=== PATIENT | male | born 1980 | race Caucasian/White ===

== ENCOUNTER → 2020-04-29 17:23 | Outpatient (CLI) | payer OTHER, SELFPAY ==
--- NOTE | ~2020-04-29 | XR_ITS ---
EXAMINATION: XR chest 2V EXAM DATE: 04/29/2020 17:43 INDICATION: Chest tightness for couple of days. Productive cough. TECHNIQUE: Frontal and lateral projections of the chest obtained and reviewed. There is no prior aundrea dy for comparison. FINDINGS: Moderate hyperinflation. The lungs are clear. There are no pleural effusions. The cardiom ediastinal silhouette is within normal limits. There is no pneumothorax suspected. The bones and so ft tissues are unremarkable. IMPRESSION: 1. No acute cardiopulmonary findings. 2. Hyperinflation. Reviewed, dictated and finalized at location A.
== END ==
PROVIDERS: PCP Family Medicine; Visit Provider Family Medicine
DX: R05 Cough (principal)
CPT/HCPCS: 71046

== ENCOUNTER 2024-01-31 20:11 | Emergency (ER) | payer OTHER, SELFPAY ==
[2024-01-31 20:14] VITALS: BP 142/92; PULSE 88; RESP 15; TEMP 36.7; O2SAT 98
[2024-01-31 20:33] LABS: Basophils Absolute Auto 0.1 K/mm3 (0.0-0.1); Basophils Percent Auto 0.5 % (0.2-1.2); Eosinophils Absolute Auto 0.1 K/mm3 (0-0.3); Hematocrit 45.5 % (42.0-52.0); Hemoglobin 15.2 g/dL (14.0-18.0); Immature Granulocyte Absolute 0.02 K/mm3 (0.00-0.031); Immature Granulocyte Percent A 0.2 % (0-0.5); Lymphocytes Absolute Auto 2.91 K/mm3 (0.9-3.2); Lymphocytes Percent Auto 31.9 % (18.3-44.2); Mean Corpuscular HGB Conc 33.4 g/dl (32-36); Mean Corpuscular Hemoglobin 30.2 pg (26-34); Mean Corpuscular Volume 90.5 fl (80-100); Mean Platelet Volume 10.8 fl (7.4-10.4); Monocytes Absolute Auto 0.6 K/mm3 (0.1-0.6); Neutrophils Absolute Auto 5.4 K/mm3 (1.3-6.7); Neutrophils Percent Auto 59.4 % (45.5-73.1); Platelet Count Result 204 k/mm3 (150-375); Red Blood Count 5.03 M/mm3 (4.6-6.20); White Blood Count 9.1 K/mm3 (4.5-10.0)
[2024-01-31 20:43] LABS: Alanine Aminotransferase 25 U/L (6-50); Albumin Level 5.3 g/dL (3.5-5.1); Alkaline Phosphatase 65 U/L (38-126); Anion Gap 10 mmol/L (4-12); Aspartate Amino Transferase 39 U/L (17-59); Bilirubin,Total 0.8 mg/dL (0.2-1.3); Blood Urea Nitrogen 20 mg/dL (9-20); Calcium 9.7 mg/dL (8.4-10.2); Carbon Dioxide 29 mmol/L (22-30); Chloride 99 mmol/L (98-107); Estimated CRCL calculation 104 ml/min; Estimated Glomerular Filt Rate > 60; Glucose 82 mg/dL (65-110); Lipase 74 U/L (23-300); Potassium 3.7 mmol/L (3.4-5.0); Sodium 138 mmol/L (137-145)
--- NOTE | 2024-02-01 00:43 | PC.NURSE ---
Patient ambulates to the triage desk and states he needs to go to work in the morning and wants to leave. IV removed. Patient ambulates out of the waiting room without incident.
== END 2024-02-01 00:43 | disposition left against medical advice (07) ==
PROVIDERS: Emergency Provider Emergency Medicine; PCP Family Medicine
DX: R10.33 Periumbilical pain (principal)
CPT/HCPCS: 36415; 80053; 83690; 85025; 99199

== ENCOUNTER 2025-02-09 17:43 | Emergency (ER) | payer OTHER, SELFPAY ==
--- NOTE | ~2025-02-09 | XR_ITS ---
EXAMINATION: XR hand LT min 3V DATE: 02/09/2025 18:33 INDICATION: Laceration to the left thumb TECHNIQUE: Posteroanterior, oblique and lateral views of the left hand were obtained. COMPARISON: None. FINDINGS: Alignment is normal. No fracture. Joint spaces are normal. Laceration along the palmar aspect of the first distal phalanx. No radiopaque foreign bodies. IMPRESSION: 1. No osseous abnormality or radiopaque foreign body. Reviewed, dictated and finalized at location A.
--- OUTSIDE RECORDS SUMMARY | 2025-02-09 17:45 | XMS_ITS | Clinical Summary ---
Author Organization [facility] Address [address] [place] [address] Care Team Providers Care Pharmacist Assistant Name Role Phone Sania Taveras MD Primary Care Provider [phone] Source Comments [facility],non-owned Affiliates and Associated Physician Practices is amultiple site organization consisting of ambulatory clinics and hospital sitesin [place], [place], [place] and [place]. This disclosure is being madepursuant to the Care Everywhere program and may not contain all information available regarding this patient. Last updated 18.[facility] Allergies Active Allergy Reactions Criticality Noted Date Comments Sulfa Drugs Unknown 10/10/2008 Medications * Be aware that medications may not be up to date on this document. Alwaysverify current medications with the patient. sildenafil (VIAGRA) 100 MG tabletIndication s:Impotence due to erectile dysfunction Take 1 Tab by mouth once as needed for 1 dose. 9 Tab 5 1 Active Tizanidine HCl (ZANAFLEX) 4 MG CAPS once daily. Active multivitamin daily (THERAGRAN) tablet once daily. Active hydrocodone-acet aminophen (NORCO) 7.5-325 MG tablet Take 1 Tab by mouth every 4 hours as needed. Active Docusate Calcium (STOOL SOFTENER PO) Take by mouth. Activ e Polyethylene Glycol 3350 (MIRALAX PO) Take by mouth. Ac tive oxycodone-acetam inophen (PERCOCET) 10-325 MG tablet Take 1 Tab by mouth every 4 hours as needed for Pain. 60 Tab 0 2 Active omeprazole (PRILOSEC) 40 MG capsuleIndicatio ns:Gastritis Take 1 Cap by mouth 2 times daily,before breakfast and supper. 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 Gender Identity Not on file Sexual Orientation Not on file 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 Not on file Not o n file Last Filed Vital Signs Vital Sign Reading Time Taken Comments Blood Pressure 110/70 06/13/2012 1:12 PM AVIATION SUPPORT EQUIPMENT REPAIRER Pulse 74 06/13/2012 1:12 PM AVIATION SUPPORT EQUIPMENT REPAIRER Temperature 36.7 C (98.1 F) 06/13/2012 1:12 PM AVIATION SUPPORT EQUIPMENT REPAIRER Respiratory Rate 16 09/14/2011 2:27 PM AVIATION SUPPORT EQUIPMENT REPAIRER Oxygen Saturation - - Inhaled Oxygen Concentration - - Weight 89.8 kg (198 lb) 06/13/2012 1:12 PM AVIATION SUPPORT EQUIPMENT REPAIRER Height 191.8 cm (6' 3.5) 06/13/2012 1:12 PM AVIATION SUPPORT EQUIPMENT REPAIRER Body Mass Index 24.42 06/13/2012 1:12 PM AVIATION SUPPORT EQUIPMENT REPAIRER Plan of Treatment Health Maintenance Due Date Last Done Comments LIPID TESTING 1981 HIV SCREENING 1996 HEPATITIS C SCREENING 08/18/1999 DTAP/TDAP/TD VACCINES (1 - Tdap) 2000 HEPATITIS B VACCINE (1 of 3 - 19+ 3-dose series) 2000 HPV VACCINE (1 - 3-dose SCDM series) 2008 COVID-19 VACCINE (2023-2 5 season) 2024 DEPRESSION SCREENING 07/19/2024 INFLUENZA VACCINE (#1) 2025 ZOSTER VACCINE (1 of 2) 2031 HIB VACCINE Aged Out No longer eligi ble based on patient's age to complete this topic MENINGOCOCCAL (Group B) VACC INE SHARED DECISION-MAKING Aged Out No longer eligibl e based on patient's age to complete this topic MENINGOCOCCAL GROUPS A/C/Y/W VACCINE Aged Out No longer eligible b ased on patient's age to complete this topic PNEUMOCOCCAL VACCINE Aged Out No long er eligible based on patient's age to complete this topic Insurance Care Teams Pharmacist Assistant Relationship Specialty Start Date End Date Sania Taveras MD [address] [facility] [facility] [place] [address] PCP - General 11/17/08
--- OUTSIDE RECORDS SUMMARY | 2025-02-09 17:45 | XMS_ITS | Encounter Summary ---
Author Organization [facility] Health Address [address] [place] [address] Care Team Providers Care Micro Computer Data Processor Name Role Phone Sania Taveras MD Primary Care Provider [phone] Encounter Details Date Type Department Care Team (Late st Contact Info) Description 12/01/2010 [facility] Outpatient Visit [facility] [address] [place] [address] Unknown, Provider Social History Tobacco Use Types Packs/Day Years Used Date Smoking Tobacco: Former Comments:2-3 months ago Alcohol Use Standard Drinks/Week Comments Yes 0 (1 standard drink = 0.6 oz pur e alcohol) socialy once a week Sex and Gender Information Value Date Recorded Sex Assigned at Not on file 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
--- OUTSIDE RECORDS SUMMARY | 2025-02-09 17:45 | XMS_ITS | Continuity of Care Document ---
Author Organization [facility] Address [address] [place] [address] Phone Care Team Providers Care Fiscal Technician Name Role Phone No Information Unavailable Unavailable Advance Directives Directive Yes / No Effective Date File Name No Information Encounters Encounter Description Practice Location Reason(s) For Visit Diagnoses Date Provider Providers Copied on Encounter [facility] , [address], [place], [address], [place] tel:[phone] [facility] No Information No Information Referring Provider: Will Howe B, [address], [place], [address]. tel:[phone] Family History Family Member Type Diagnosis Age At Onset No Information Payers Payer name Insurance type Covered constitution party ID Authoriza tion(s) No Information Social History Type Description Quantity Date Captured Comments Sex Male Smoking Status No Information Chief Complaint And Reason For Visit No Information Reason For Referral Reason For Referral No Information History Of Present Illness Encounter Date Complaint History Of Prese nt Illness No Information Functional Status Date Functional Assessmen t No Information Instructions Date Instruction Additional Infor mation No Information Assessments Type Assessment Date No Information Patient Care Teams Name Effective Dates (start - stop) Status Members No Information
[2025-02-09 17:52] VITALS: BP 147/97; PULSE 112; RESP 16; TEMP 37.1; O2SAT 96
--- NOTE | 2025-02-09 18:30 | ED.WOUNDLAC ---
HPI - Wound/Laceration General Chief Complaint: Wound/Laceration <Kailee Montana APRN - Last Filed: 02/09/25 18:33> Stated Complaint: left thumb lac <Kailee Montana APRN - Last Filed: 02/09/25 18:33> Time Seen by Provider: 02/09/25 18:00 <Kailee Montana APRN - Last Filed: 02/09/25 18:33> Focused HPI: Patient is a 44-year-old male who presents to the ER with the left thumb laceration. He reports he cut his left thumb on a razor blade around 2:30 p.m. today. Patient reports he wrapped it up and the bleeding stopped, but then when he unwrapped it he realized how deep the cut was and decided to come into the ER for further evaluation. Patient endorses the significant mental health history but reports his symptoms are well controlled by medication. He also endorses a history of GERD and chronic lower back pain. Patient denies any decreased range of motion, purulence drainage, or excessive bleeding. GENERAL: Well-appearing, well-nourished, and in no acute distress. HEAD: Normocephalic, atraumatic. CHEST: Clear to auscultation. ?No respiratory distress. HEART: Regular rate and rhythm.? NEURO: ?Alert and oriented x3. Patient screened in triage and initial orders placed.? ?Additional care and disposition to be based upon?diagnostic testing and treatment. <Kailee Montana APRN - Last Filed: 02/09/25 18:33> Related Data Home Medications: Home Medications ?Medication ?Instructions ?Recorded ?Confirmed ?Last Taken ?Type doxycycline hyclate 20 mg tablet 20 mg PO Q12H 10/05/22 02/03/24 Unknown History lamotrigine 200 mg tablet 200 mg PO DAILY 12/22/23 02/03/24 Unknown History quetiapine 150 mg tablet 150 mg PO DAILY 12/22/23 02/03/24 Unknown History <Kailee Montana APRN - Last Filed: 02/09/25 18:33> Allergies/Adverse Reactions: Allergies Allergy/AdvReac Type Severity Reaction Status Date / Time hydrocodone Allergy Intermediate Hives / Verified 02/09/25 17:52 Red Face Sulfa (Sulfonamide Allergy Unknown Agitated Verified 02/09/25 17:52 Antibiotics) codeine Allergy Hives Verified 02/09/25 17:52 <Kailee Montana APRN - Last Filed: 02/09/25 18:33> Review of Systems Review of Systems: All systems reviewed & are unremarkable except as noted in HPI and below <Jacquelin Gallardo PA-C - Last Filed: 02/09/25 22:39> PMFSH Past Medical History Medical History: Medical History (Reviewed 02/03/24 @ 10:36 by Alexey Del Cid [facility]) Bipolar 1 disorder Chronic neck pain Medication addiction in remission Mild intermittent asthma in adult without complication <Kailee Montana APRN - Last Filed: 02/09/25 18:33> Family History Family History: Family History Other Cerebrovascular accident <Kailee Montana APRN - Last Filed: 02/09/25 18:33> Social History Social History: Social History (Reviewed 02/03/24 @ 10:36 by Alexey Del Cid [facility]) Smoking status: Former smoker (quit 2 years ago ) Second hand tobacco smoke exposure: No Alcohol intake: former Substance use: former Substance use type: does not use Lack of Transportation: No Lack of Food: Never True Current Housing: I Have Housing Concerned About Future Housing: No Difficulty Paying Gas/Electric Bills: No Difficulty Paying for Meds: No Currently Unemployed: No Education: High School Diploma/GED Difficulty w/ Childcare or Family Care: No Living arrangements: with family Additional living arrangements comments: lives with . Gender identity (if verbalized by the patient): Male Sexual Orientation (if Verbalized by the Patient): Straight or Heterosexual Spiritual care concerns: No Agree to blood products: Yes <Kailee Montana APRN - Last Filed: 02/09/25 18:33> Exam Narrative: GENERAL: Well-appearing, well-nourished, and in no acute distress. HEAD: Normocephalic, atraumatic. EYES: EOMI. EXTREMITIES: Normal range of motion. No edema. 2cm flap laceration to the left 1st finger SKIN: Warm, dry, no rash. NEURO: No focal deficits. Alert and oriented x3. PSYCH: Normal mood and affect <Jacquelin Gallardo PA-C - Last Filed: 02/09/25 22:39> Course Vital Signs Vital signs: Vital Signs Temperature 98.7 F 02/09/25 17:52 Pulse Rate 112 H 02/09/25 17:52 Respiratory Rate 16 02/09/25 17:52 Blood Pressure 147/97 H 02/09/25 17:52 Pulse Oximetry 96 02/09/25 17:52 Oxygen Delivery Room Air 02/09/25 17:52 Temperature 98.4 F 02/09/25 21:18 Pulse Rate 100 02/09/25 21:18 Respiratory Rate 17 02/09/25 21:18 Blood Pressure 136/87 02/09/25 21:18 Pulse Oximetry 97 02/09/25 21:18 Oxygen Delivery Room Air 02/09/25 21:18 <Kailee Montana, INFRASTRUCTURE SOLUTIONS ARCHITECT - Last Filed: 02/09/25 18:33> Vital Signs Temperature 98.7 F 02/09/25 17:52 Pulse Rate 112 H 02/09/25 17:52 Respiratory Rate 16 02/09/25 17:52 Blood Pressure 147/97 H 02/09/25 17:52 Pulse Oximetry 96 02/09/25 17:52 Oxygen Delivery Room Air 02/09/25 17:52 Temperature 98.4 F 02/09/25 21:18 Pulse Rate 100 02/09/25 21:18 Respiratory Rate 17 02/09/25 21:18 Blood Pressure 136/87 02/09/25 21:18 Pulse Oximetry 97 02/09/25 21:18 Oxygen Delivery Room Air 02/09/25 21:18 <Jacquelin Gallardo PA-C - Last Filed: 02/09/25 22:39> Procedures Laceration Laceration 1: Date: 02/09/25 <UZMA Peralta Last Filed: 02/09/25 22:39> Time: 22:38 <UZMA Peralta Last Filed: 02/09/25 22:39> Site: hand <UZMA Peralta Last Filed: 02/09/25 22:39> Side (If applicable): left <UZMA Peralta Last Filed: 02/09/25 22:39> Size (cm): 2 <UZMA Peralta Last Filed: 02/09/25 22:39> Description: flap <UZMA Peralta Last Filed: 02/09/25 22:39> Depth: simple, single layer <UZMA Peralta Last Filed: 02/09/25 22:39> Local Anesthetic: lidocaine 1% <UZMA Peralta Last Filed: 02/09/25 22:39> Amount of anesthesia used (mL): 2 <UZMA Peralta Last Filed: 02/09/25 22:39> Pre-repair: wound explored and irrigated <UZMA Peralta Last Filed: 02/09/25 22:39> ====== Skin Level ======: Skin layer closed with: nylon and vicryl <UZMA Peralta Last Filed: 02/09/25 22:39> Size (cm): 4-0 <UZMA Peralta Last Filed: 02/09/25 22:39> Number of sutures: 6 <UZMA Peralta Last Filed: 02/09/25 22:39> Technique: simple, interrupted <UZMA Peralta Last Filed: 02/09/25 22:39> ====== Subcutaneous Layer ======: ====== Muscle Layer ======: ====== Tendon Layer ======: MDM - Wound/Laceration MDM Narrative Medical decision making narrative: Patient presents the emergency department for laceration to the left 1st finger. Wound was irrigated and closed with sutures. Patient is up-to-date on tetanus vaccination. X-ray without acute osseous abnormalities. He was educated on further wound care. He is to follow up with primary provider. He was given warnings to return to the ER <UZMA Peralta Filed: 02/09/25 22:39> Differential Diagnosis Differential diagnosis: Likely laceration, abrasion and avulsion of skin <Jacquelin Gallardo PA-C - Last Filed: 02/09/25 22:39> Imaging Data Radiologist's impression: ITS Impressions Hand X-Ray 02/09/25 20:22 IMPRESSION: 1. No osseous abnormality or radiopaque foreign body. <Jacquelin Gallardo PA-C - Last Filed: 02/09/25 22:39> Critical Care Time Critical Care Time Critical Care Time: No <Jacquelin Gallardo PA-C - Last Filed: 02/09/25 22:39> Discharge Plan Discharge Clinical Impression: Laceration <Kailee Montana APRN - Last Filed: 02/09/25 18:33> Patient Disposition: Home <Kailee Montana APRN - Last Filed: 02/09/25 18:33> Condition: Stable <Kailee Montana APRN - Last Filed: 02/09/25 18:33> Instructions: Care For Your Stitches (ED), Laceration (ED) <Kailee Montana APRN - Last Filed: 02/09/25 18:33> Additional Instructions: Return to the emergency department if you experience fever, redness or swelling of your wound, abnormal drainage from your wound, or any other symptoms that are concerning to you. Apply antibiotic ointment daily. Do not soak the wound. Clean with mild soap and water daily Follow-up with your primary care doctor for suture removal in 10-14 days. <Kailee Montana APRN - Last Filed: 02/09/25 18:33> Patient Language: Citizen Of [place] <Kailee Montana APRN - Last Filed: 02/09/25 18:33> Prescriptions: No Action doxycycline hyclate 20 mg tablet 20 mg PO Q12H quetiapine 150 mg tablet 150 mg PO DAILY lamotrigine 200 mg tablet 200 mg PO DAILY tadalafil [Cialis] 10 mg tablet 10 mg PO DAILY PRN (Reason: sexual activity) Qty: 10 3RF Rx Instructions: administer approximately 30min before sexual activity; do not use more than 1 dose per 24hrs omeprazole 40 mg capsule,delayed release(DR/EC) 40 mg PO DAILY Qty: 90 4RF cyclobenzaprine 10 mg tablet 10 mg PO TID PRN (Reason: muscle spasm) Qty: 270 0RF <Kailee Montana APRN - Last Filed: 02/09/25 18:33> Follow-up/Referrals: Faith Cedeno MD [Primary Care Provider] - <Kailee Montana APRN - Last Filed: 02/09/25 18:33>
[2025-02-09] MEDS: LIDOCAINE 1% LOCAL INJ 10 ML VIAL INFILTRATE (20:10)
--- OUTSIDE RECORDS SUMMARY | 2025-02-09 20:15 | XMS_ITS | Clinical Summary ---
Author Organization [facility] Address [address] [place] [address] Care Team Providers Care Manager Warehouse Name Role Phone Sania Taveras MD Primary Care Provider [phone] Source Comments [facility],non-owned Affiliates and Associated Physician Practices is amultiple site organization consisting of ambulatory clinics and hospital sitesin [place], [place], [place] and [place]. This disclosure is being madepursuant to the Care Everywhere program and may not contain all information available regarding this patient. 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 file Not o n file Last Filed Vital Signs Vital Sign Reading Time Taken Comments Blood Pressure 110/70 06/13/2012 1:12 PM SAFETY AND SECURITY MANAGER Pulse 74 06/13/2012 1:12 PM SAFETY AND SECURITY MANAGER Temperature 36.7 C (98.1 F) 06/13/2012 1:12 PM SAFETY AND SECURITY MANAGER Respiratory Rate 16 09/14/2011 2:27 PM SAFETY AND SECURITY MANAGER Oxygen Saturation - - Inhaled Oxygen Concentration - - Weight 89.8 kg (198 lb) 06/13/2012 1:12 PM SAFETY AND SECURITY MANAGER Height 191.8 cm (6' 3.5) 06/13/2012 1:12 PM SAFETY AND SECURITY MANAGER Body Mass Index 24.42 06/13/2012 1:12 PM SAFETY AND SECURITY MANAGER Plan of Treatment Health Maintenance Due Date [...] to complete this topic Insurance Care Teams Manager Warehouse Relationship Specialty Start Date End Date Sania Taveras MD [address] [facility] [address] [place] [address] PCP - General 11/17/08
--- OUTSIDE RECORDS SUMMARY | 2025-02-09 20:15 | XMS_ITS | Continuity of Care Document ---
Author Organization [facility] Address [address] [place] [address] Phone Care Team Providers Care Salon Professional Name Role Phone No Information Unavailable Unavailable Advance Directives Directive Yes / No Effective Date File Name No Information Encounters Encounter Description Practice Location Reason(s) For Visit Diagnoses Date Provider Providers Copied on Encounter [facility] , [address], [place], [address], [place] tel:[phone] [facility] No Information No Information Referring Provider: Will Howe B, [address], [place], [address]. tel:[phone] Family History Family Member Type Diagnosis Age At Onset No Information Payers Payer name Insurance type Covered libertarian ID Authoriza tion(s) No Information Social History [...]
--- OUTSIDE RECORDS SUMMARY | 2025-02-09 20:15 | XMS_ITS | Encounter Summary ---
Author Organization [facility] Health Address [address] [address] Care Team Providers Care Haul Driver Name Role Phone Sania Taveras MD Primary Care Provider [phone] Encounter Details Date Type Department Care Team (Late st Contact Info) Description 12/01/2010 [facility] Outpatient Visit [facility] [address] [place] [address] Unknown, Provider Social History Tobacco Use Types Packs/Day Years Used Date Smoking Tobacco: Former Comments:2-3 months ago Alcohol Use Standard Drinks/Week Comments Yes 0 (1 standard drink = 0.6 oz pur e alcohol) socialy once a week Sex and Gender Information Value Date Recorded Sex Assigned at Not on file 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
[2025-02-09 21:18] VITALS: BP 136/87; PULSE 100; RESP 17; TEMP 36.9; O2SAT 97
== END 2025-02-09 23:02 | disposition home or self-care (01) ==
PROVIDERS: Emergency Provider Physician Assistant; PCP Family Medicine
DX: S61.012A Laceration without foreign body of left thumb without damage to nail, initial encounter (principal); J45.20 Mild intermittent asthma, uncomplicated; F31.9 Bipolar disorder, unspecified; Z87.891 Personal history of nicotine dependence; W27.8XXA Contact with other nonpowered hand tool, initial encounter; Z79.899 Other long term (current) drug therapy
CPT/HCPCS: 12001; 73130; 99283; J2003